=== PATIENT | male | born 1945 | race Caucasian/White ===

== ENCOUNTER → 2017-03-17 | Outpatient (CLI) | payer OTHER, MEDICARE ==
[2017-03-17 10:45] LABS: BLOOD UREA NITROGEN 15 mg/dL (7-22); BUN/CREATININE RATIO 18.75 (6-20); CALCIUM 9.3 mg/dL (8.7-10.7); EST GLOMERULAR FILTRATION > 60 (>60 ml/min/1.73m(2))
[2017-03-17 11:17] LABS: BASOPHILS # (AUTO) 0.04 10*3/UL; BASOPHILS % (AUTO) 0.8 % (0-1); EOSINOPHILS # (AUTO) 0.08 10*3/UL; EOSINOPHILS % (AUTO) 1.6 % (0-8); HEMATOCRIT 41.9 % (42.0-52.0); HEMOGLOBIN 14.2 g/dL (14.0-18.0); LYMPHOCYTES # (AUTO) 1.41 10*3/uL; MEAN CORPUSCULAR HEMOGLOBIN 33.2 PG (27-31); MEAN CORPUSCULAR HGB CONC 33.9 g/dL (33-37); MEAN CORPUSCULAR VOLUME 97.9 FL (80-90); MONOCYTES # (AUTO) 0.63 10*3/UL (0.3-0.8); MONOCYTES % (AUTO) 12.7 % (5-15); NEUTROPHILS # (AUTO) 2.81 10*3/UL; NEUTROPHILS % (AUTO) 56.4 % (50-80); PLATELET MORPHOLOGY COMMENT NORMAL MORPHOLOGY (NORM); RBC MORPHOLOGY COMMENT NORMAL MORPHOLOGY (NORM); RED BLOOD COUNT 4.28 10^6/uL (4.70-6.10); WBC MORPHOLOGY COMMENT NORMAL MORPHOLOGY (NORM)
== END ==
LOC: LAB 10:05
PROVIDERS: ATTEND Internal Medicine Infectious Disease
DX: B18.2 Chronic viral hepatitis C (principal)
CPT/HCPCS: 36415; 80053; 85025

== ENCOUNTER → 2017-04-14 | Outpatient (CLI) | payer OTHER, MEDICARE ==
[2017-04-14 11:06] LABS: BASOPHILS # (AUTO) 0.03 10*3/UL; BASOPHILS % (AUTO) 0.5 % (0-1); EOSINOPHILS # (AUTO) 0.05 10*3/UL; EOSINOPHILS % (AUTO) 0.8 % (0-8); HEMOGLOBIN 14.7 g/dL (14.0-18.0); LYMPHOCYTES # (AUTO) 1.71 10*3/uL; MEAN CORPUSCULAR HGB CONC 34.2 g/dL (33-37); MEAN CORPUSCULAR VOLUME 96.4 FL (80-90); MEAN PLATELET VOLUME 10.9 FL (7.4-12.2); MONOCYTES # (AUTO) 0.79 10*3/UL (0.3-0.8); MONOCYTES % (AUTO) 12.4 % (5-15); NEUTROPHILS # (AUTO) 3.77 10*3/UL; NEUTROPHILS % (AUTO) 59.2 % (50-80); RED BLOOD COUNT 4.46 10^6/uL (4.70-6.10)
[2017-04-14 11:10] LABS: PLATELET MORPHOLOGY COMMENT NORMAL MORPHOLOGY (NORM); RBC MORPHOLOGY COMMENT NORMAL MORPHOLOGY (NORM); WBC MORPHOLOGY COMMENT NORMAL MORPHOLOGY (NORM)
[2017-04-14 11:18] LABS: BLOOD UREA NITROGEN 17 mg/dL (7-22); BUN/CREATININE RATIO 21.25 (6-20); CALCIUM 9.6 mg/dL (8.7-10.7); EST GLOMERULAR FILTRATION > 60 (>60 ml/min/1.73m(2)); SERUM ALBUMIN 4.4 g/dL (3.5-4.8)
== END ==
LOC: LAB 10:41
PROVIDERS: ATTEND Internal Medicine Infectious Disease
DX: B18.2 Chronic viral hepatitis C (principal)
CPT/HCPCS: 36415; 80053; 85025

== ENCOUNTER → 2017-04-21 | Outpatient (CLI) | payer OTHER, MEDICARE ==
--- NOTE | 2017-04-21 12:19 | DI ---
US ABDOMEN LIMITED,04/21/2017 8:38 AM: Clinical History: Chronic active hepatitis C. Previous Exam: None at this facility. Findings: Multiple grayscale and color Doppler sonographic images are obtained through the abdomen. The pancrea s is normal throughout its visualized portions. The liver is also normal. The gallbladder contains some layering stones. The common bile duct measures 5 mm. The right kidney measures 10.2 cm in length without hydronephrosis nor nephrolithiasis. The aorta is within normal limits. Impression: Cholelithiasis.
== END ==
LOC: US 08:29
PROVIDERS: ATTEND Internal Medicine Infectious Disease
DX: B18.2 Chronic viral hepatitis C (principal)
CPT/HCPCS: 76705

== ENCOUNTER → 2017-05-12 | Outpatient (CLI) | payer OTHER, MEDICARE ==
[2017-05-12 09:40] LABS: BASOPHILS # (AUTO) 0.08 10*3/UL; BASOPHILS % (AUTO) 1.4 % (0-1); EOSINOPHILS # (AUTO) 0.14 10*3/UL; EOSINOPHILS % (AUTO) 2.4 % (0-8); HEMATOCRIT 44.3 % (42.0-52.0); HEMOGLOBIN 15.2 g/dL (14.0-18.0); LYMPHOCYTES # (AUTO) 1.58 10*3/uL; MEAN CORPUSCULAR HEMOGLOBIN 33.2 PG (27-31); MEAN CORPUSCULAR HGB CONC 34.3 g/dL (33-37); MEAN CORPUSCULAR VOLUME 96.7 FL (80-90); MEAN PLATELET VOLUME 10.6 FL (7.4-12.2); MONOCYTES # (AUTO) 0.62 10*3/UL (0.3-0.8); MONOCYTES % (AUTO) 10.7 % (5-15); NEUTROPHILS # (AUTO) 3.34 10*3/UL; NEUTROPHILS % (AUTO) 57.9 % (50-80); PLATELET MORPHOLOGY COMMENT NORMAL MORPHOLOGY (NORM); RBC MORPHOLOGY COMMENT NORMAL MORPHOLOGY (NORM); RED BLOOD COUNT 4.58 10^6/uL (4.70-6.10); WBC MORPHOLOGY COMMENT NORMAL MORPHOLOGY (NORM)
[2017-05-12 09:58] LABS: CHOL/HDL RATIO 2.03 RATIO (0-4.0); HEMOGLOBIN A1C 5.46 % (4.2-6.0)
[2017-05-12 09:58] LABS: BLOOD UREA NITROGEN 15 mg/dL (7-22); BUN/CREATININE RATIO 18.75 (6-20); CALCIUM 9.8 mg/dL (8.7-10.7); EST GLOMERULAR FILTRATION > 60 (>60 ml/min/1.73m(2)); SERUM ALBUMIN 4.2 g/dL (3.5-4.8)
== END ==
LOC: LAB 09:03
PROVIDERS: ATTEND Internal Medicine Infectious Disease
DX: I10 Essential (primary) hypertension (principal); B18.2 Chronic viral hepatitis C; Z79.899 Other long term (current) drug therapy
CPT/HCPCS: 36415; 80053; 80061; 83036; 85025; 87522